=== PATIENT | female | born 1970 | race Caucasian/White ===

== ENCOUNTER 2020-04-18 13:43 | Emergency (ER) | payer SELFPAY ==
[~2020-04-18] VITALS: Ht 157.5 cm; Wt 113.4 kg
[~2020-04-18 13:43] MED LIST: NYQUIL PO
[2020-04-18 13:46] VITALS: BP 120/69
--- NOTE | 2020-04-18 13:56 | NUR ---
PT AMBULATED TO BED 7 WITH STEADY GAIT.
[2020-04-18 14:10] VITALS: BP 139/94
--- NOTE | 2020-04-18 14:11 | NUR ---
Dr. Medina at bedside with pt for MSE
[2020-04-18] MEDS ORDERED: MECLIZINE 25 MG TAB PO ONE (14:15)
--- NOTE | 2020-04-18 14:15 | NUR ---
see complete assessment.
--- NOTE | 2020-04-18 14:45 | NUR ---
Patient discharged with v/s stable. Written and verbal after care instructions given and explained. Patient alert, oriented and verbalized understanding of instructions. Ambulatory with steady gait. All questions addressed prior to discharge. ID band removed. Patient advised to follow up with PMD. Rx of zofran and meclizine given. Patient educated on indication of medication including possible reaction and side effects. Opportunity to ask questions provided and answered.
== END 2020-04-18 14:44 | disposition home or self-care (01) ==
LOC: MED 13:43
DX: H81.10 Benign paroxysmal vertigo, unspecified ear (principal); Z88.5 Allergy status to narcotic agent; Z88.8 Allergy status to other drugs, medicaments and biological substances; Z88.6 Allergy status to analgesic agent; Z90.49 Acquired absence of other specified parts of digestive tract
CPT/HCPCS: 81002; 81025; 93005; 99283; J8597

== ENCOUNTER 2023-03-09 14:44 | Emergency (ER) | payer MEDICAID ==
[~2023-03-09] VITALS: Ht 160 cm; Wt 116.3 kg
[2023-03-09 15:18] VITALS: BP 107/67; PULSE 88; RESP 17; TEMP 98; O2SAT 97
[2023-03-09] MEDS ORDERED: IBUP-1842 PO (15:40)
[2023-03-09] MEDS ORDERED: AMOX500C25 PO (15:40)
== END 2023-03-09 15:55 | disposition home or self-care (01) ==
LOC: MED 14:44
DX: K04.7 Periapical abscess without sinus (principal); H92.02 Otalgia, left ear; Z88.5 Allergy status to narcotic agent; Z88.8 Allergy status to other drugs, medicaments and biological substances
CPT/HCPCS: 99283